=== PATIENT | female | born 1995 | race Caucasian/White ===

== ENCOUNTER 2024-10-15 20:39 | Inpatient (IN) | payer OTHER, SELFPAY ==
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
--- NOTE | 2024-10-15 | ECG_ITS ---
Test Reason : EVALUATE PROLONG QT Blood Pressure : */* mmHG Vent. Rate : 57 BPM Atrial Rate : 57 BPM P-R Int : 128 ms QRS Dur : 92 ms QT Int : 434 ms P-R-T Axes : 52 48 41 degrees QTcB Int : 422 ms Sinus bradycardia Incomplete right bundle branch block Cannot exclude old Septal infarct , age undetermined Abnormal ECG No previous ECGs available Referred By: Generic ED Physician Electronically Signed By: TORIE CHEN
[2024-10-15 20:44] VITALS: BP 112/63; BP 118/62; PULSE 61; PULSE 99; RESP 17; TEMP 37.1; O2SAT 97; BMI 44.4
[2024-10-15 21:10] LABS: Appearance Urine Clear; Glucose Urine UA Negative (Negative); PH 6.0 (5.0-9.0); Specific Gravity - Urine 1.015 (1.005-1.025); UMIC TRIGGER UACC YES; UPreg QC Valid YES
[2024-10-15 21:17] LABS: Cannabinoid Screen Urine Not Detected (Not Detect)
[2024-10-15 21:20] LABS: UACC Culture Trigger YES
[2024-10-15 21:33] LABS: Hematocrit 35.0 % (37.0-47.0); Hemoglobin 11.7 g/dl (12.0-16.0); Imm Gran Abs Auto 0.03 X10*3/uL (0.00-0.03); Imm Gran Pct Auto 0.5 % (0.0-0.4); Lymphocytes Absolute Auto 2.0 X10*3/uL (1.2-4.9); MANUAL DIFF FLAG NO; Mean Corpuscular HGB Conc 33.4 g/dl (31.0-35.0); Mean Corpuscular Hemoglobin 27.1 pg (27.0-33.0); Mean Corpuscular Volume 81.2 fL (80.0-98.0); NRBC Abs Auto 0.000 X10*3/uL (0.0-0.012); NRBC Pct Auto 0.0 /100WBC (0.0-0.2); Platelet Count 278 X10*3/uL (160-400); Red Blood Count 4.31 X10*6/uL (4.20-5.50); White Blood Count 6.4 X10*3/uL (4.8-10.8)
[2024-10-15 21:51] LABS: Alanine Aminotransferase 24 U/L (0-31); Albumin Level 4.4 g/dL (3.5-5.0); Alkaline Phosphatase 94 U/L (39-117); Anion Gap 16 (12-20); Aspartate Amino Transferase 24 U/L (5-31); Blood Urea Nitrogen 24 mg/dL (9-16); Calcium 8.8 mg/dL (8.4-10.2); Carbon Dioxide 22 mmol/L (22-29); Chloride 103 mmol/L (96-108); Creatinine Clr Calc Pharmacy 79.7; Estimated Glomerular Filt Rate 55; Potassium 3.7 mmol/L (3.3-5.1); Sodium 137 mmol/L (135-145); Total Protein 7.3 g/dL (6.5-8.0)
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
[2024-10-16 07:05] VITALS: BP 113/69; PULSE 58; RESP 20; TEMP 36.6; O2SAT 98
--- NOTE | 2024-10-16 08:05 | PHA.MEDREC ---
Pharmacy Consult ? Medication Reconciliation Pharmacy has completed the medication reconciliation. Reviewed med rec done by nursing.
[2024-10-16] MEDS: Ferrous Sulfate 324 MG TABLET.DR PO (09:42)
--- NOTE | 2024-10-16 09:43 | MHC.CARE ---
Pt will be an inpatient bedsearch.
--- NOTE | 2024-10-16 10:04 | PC.NURSE ---
assumed care of patient at 0700, patient is awake and alert, patient requesting to call [facility] no phone number is on file. patient is upset with staff. medicated per APR. plan for [facility]
--- NOTE | 2024-10-16 11:08 | PC.NURSE ---
care home staff came and dropped off patient belongings and medications. controlled in pharmacy
[2024-10-16 12:15] VITALS: BP 116/68; PULSE 82; RESP 16; TEMP 36.7; O2SAT 92
[2024-10-16 14:09] VITALS: BMI 48.2
--- NOTE | 2024-10-16 14:43 | PC.NURSE ---
Dori was admitted to M[facility] at 1200 from [facility] on [facility] for treatment of Mood disorder with SI. Prior to admission she was in a [facility] where they became concerned for her safety due to erratic behavior, delusional thought process and she endorsed SI with plan to cut herself. On arrival to the unit she is alert, fully oriented, labile and demanding.? Mood is reportedly depressed Affect is labile. She has low frustration tolerance.? She denies hallucinations of any kind.? Pt reports she is 3 months post with twins who are in dcf custody as are her 3 other children. This is a stressor for pt. She claims she needs to eat excessively due to being post but she also reports 25 lb weight gain in last 2 weeks.? Thought Process is therefore notably illogical.? She denies ideation, plan or intent to harm self or others on arrival to the unit. Sleep is reportedly good. Focus is impaired Pt has hx of? stimulant (crack) use disorder with last use 2 months ago Medical Issues include a left lower jaw/ tooth infection for which she is taking abx and tylenol She is on q 15 min safety checks.
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
[2024-10-16 20:00] VITALS: BP 119/63; PULSE 58; RESP 16; TEMP 36.4; O2SAT 99
[2024-10-17 03:12] VITALS: BP 131/83
--- NOTE | 2024-10-17 08:52 | HO.PSYCHPN ---
Subjective Subjective Date of Service: 10/17/24 Reason For Visit: si Subjective Notes: Conditional Voluntary Interim History: Active on unit. observed making multiple phone calls. Patient reports feeling good ; pt stated, I got accepted into the program I wanted in [place]. They have a bed for me tomorrow. I have my medications with me so I don't need you to send them . Patient reports she is looking forward to going to program; pt stated, I'm going to stay clean and try to get my babies back . denies SI/HI/VH/AH. Pt plans on following up with outpatient providers. Medication Compliance: Yes Side effects from medications: No Mental Status Exam Mental Status Exam Narrative: Pt is alert and oriented; behavior is cooperative and calm; dressed in casual attire; mood is described as good ; eye contact appropriate; Speech is normal rate, volume, slurred and not pressured; thought process is organized and goal directed; Thought content is on discharge; denies SI/HI/VH/AH. Diagnostics Vital Signs (24Hr): Vital Signs - 24 hr 10/16/24 12:15 10/16/24 20:00 10/17/24 03:12 Temperature 98.1 F 97.5 F Pulse Rate 82 58 Respiratory Rate 16 16 Blood Pressure 116/68 119/63 131/83 Pulse Oximetry 92 99 Oxygen Delivery Method Room Air Room Air BMI result Body Mass Index 48.2 Labs 10/15/24 21:28 10/15/24 21:28 Labs: Laboratory Results - last 48 hr 10/15/24 10/15/24 10/15/24 21:00 21:01 21:28 WBC 6.4 RBC 4.31 Hgb 11.7 L Hct 35.0 L MCV 81.2 MCH 27.1 MCHC 33.4 RDW 15.2 Plt Count 278 MPV 10.1 Immature Gran % (Auto) 0.5 H Neut % (Auto) 58.9 Lymph % (Auto) 32.0 [place] % (Auto) 6.7 Eos % (Auto) 1.3 Baso % (Auto) 0.6 Lymph # (Auto) 2.0 [place] # (Auto) 0.4 Eos # (Auto) 0.1 Baso # (Auto) 0.0 Abs Immat Gran (auto) 0.03 Absolute Neuts (auto) 3.8 Absolute Nucleated RBC 0.000 Nucleated RBC % (auto) 0.0 Sodium 137 Potassium 3.7 Chloride 103 Carbon Dioxide 22 Anion Gap 16 BUN 24 H Creatinine 1.15 Estim Creat Clear Calc 79.7 Estimated GFR 55 Random Glucose 157 H Calcium 8.8 Total Bilirubin 0.4 AST 24 ALT 24 Alkaline Phosphatase 94 Total Protein 7.3 Albumin 4.4 Urine Color Yellow Urine Appearance Clear Urine pH 6.0 Ur Specific [place] 1.015 Urine Protein Negative Urine Glucose (UA) Negative Urine Ketones Negative Urine Blood Negative Urine Nitrite Negative Ur Leukocyte Esterase Small (1+) H Urine RBC 0-2 Urine WBC 0-5 Ur Squamous Epith Cells 3-5 Urine Bacteria 1+ Hyaline Casts 0-2 Urine Test NEGATIVE Urine Opiates Screen Not Detected Ur Buprenorphine Scrn Not Detected Ur Oxycodone Screen Not Detected Urine Methadone Screen Not Detected Urine Fentanyl Screen Not Detected Ur Barbiturates Screen Not Detected Ur Phencyclidine Scrn Not Detected Ur Amphetamines Screen Not Detected U Benzodiazepines Scrn POSITIVE H Urine Cocaine Screen Not Detected U Marijuana (THC) Screen Not Detected Ethyl Alcohol < 10 Medications Medications Current Medications Acetaminophen (Acetaminophen 325 Mg Tablet) 650 mg PO Q6H PRN PRN Reason: Headache/Pain, Scale 1-10 Last Admin: 10/16/24 23:58 Dose: 650 mg Al Hydroxide/Mg Hydroxide (Magnesium Hydrox/Alum Hydrox 30 Ml Oral.Susp) 30 ml PO Q6H PRN PRN Reason: Heartburn/Nausea Azithromycin (Azithromycin 500 Mg Tablet) 500 mg PO DAILY [facility] Last Admin: 10/16/24 09:42 Dose: 500 mg Baclofen (Baclofen 10 Mg Tablet) 10 mg PO TID [facility] Last Admin: 10/16/24 22:06 Dose: 10 mg Benzocaine (Benzocaine 20 % Oral Gel 9 Gm Tube) 1 appl MUCOUS MEM TID PRN; Protocol PRN Reason: Mouth Sore Pain Clonidine HCl (Clonidine Hcl 0.1 Mg Tablet) 0.1 mg PO Q4H PRN; Protocol PRN Reason: Agitation Last Admin: 10/17/24 03:12 Dose: 0.1 mg Cyclobenzaprine HCl (Cyclobenzaprine Hcl 5 Mg Tablet) 5 mg PO TID PRN PRN Reason: Spasms Last Admin: 10/16/24 22:04 Dose: 5 mg Doxepin HCl (Doxepin Hcl 25 Mg Capsule) 25 mg PO BEDTIME [facility] Last Admin: 10/16/24 22:06 Dose: 25 mg Ferrous Sulfate (Ferrous Sulfate 324 Mg Tablet.Dr) 324 mg PO DAILY [facility] Last Admin: 10/16/24 09:42 Dose: 324 mg Fluoxetine HCl (Fluoxetine Hcl 20 Mg Capsule) 20 mg PO DAILY [facility] Last Admin: 10/16/24 09:42 Dose: 20 mg Hydroxyzine HCl (Hydroxyzine Hcl 25 Mg Tablet) 25 mg PO Q6H PRN PRN Reason: mild anxiety Ibuprofen (Ibuprofen 600 Mg Tablet) 600 mg PO Q8H PRN PRN Reason: Pain, Moderate(Pain Scale 4-6) Last Admin: 10/16/24 22:04 Dose: 600 mg Magnesium Hydroxide (Milk Of Magnesia 30 Ml Oral.Susp) 30 ml PO DAILY PRN PRN Reason: Constipation Melatonin (Melatonin 3 Mg Tablet) 6 mg PO BEDTIME PRN PRN Reason: Insomnia Last Admin: 10/16/24 22:03 Dose: 6 mg Nicotine (Nicotine 21 Mg Patch.Td24) 21 mg TRANSDERMA DAILY [facility] Nicotine Polacrilex (Nicotine Polacrilex 2 Mg Gum) 4 mg BUCCAL Q2H PRN PRN Reason: Nicotine Cravings Pt Own (Atomoxetine (18 Mg Capsule)) 36 mg PO DAILY [facility] Last Admin: 10/16/24 15:05 Dose: Not Given Olanzapine (Olanzapine 10 Mg Tablet) 10 mg PO Q4H PRN PRN Reason: Agitation Last Admin: 10/16/24 22:03 Dose: 10 mg Ondansetron HCl (Ondansetron Odt 4 Mg Tab.Rapdis) 4 mg TRANSLINGU Q6H PRN PRN Reason: Nausea and Vomiting Last Admin: 10/16/24 22:17 Dose: 4 mg Polyethylene Glycol (Polyethylene Glycol 3350 17 Gm Powd.Pack) 17 gm PO DAILY [facility] Last Admin: 10/16/24 09:44 Dose: Not Given Senna (Sennosides 8.6 Mg Tablet) 17.2 mg PO DAILY PRN PRN Reason: Constipation Topiramate (Topiramate 25 Mg Tablet) 50 mg PO BEDTIME [facility] Last Admin: 10/16/24 22:04 Dose: Not Given Trazodone HCl (Trazodone Hcl 50 Mg Tablet) 50 mg PO BEDTIME MRX1 PRN PRN Reason: Insomnia Last Admin: 10/17/24 03:12 Dose: 50 mg Allergies Allergies Allergy/AdvReac Type Severity Reaction Status Date / Time haloperidol (From Haldol) Allergy Unknown Verified 10/15/24 20:51 Penicillins Allergy Unknown Verified 10/15/24 20:51 Assessment & Plan Assessment & Plan (1) Bipolar disorder: Status: Acute Code(s): F31.9 - Bipolar disorder, unspecified (2) PTSD (post-traumatic stress disorder): Status: Acute Code(s): F43.10 - Post-traumatic stress disorder, unspecified (3) Cocaine use disorder: Status: Acute Code(s): F14.10 - Cocaine abuse, uncomplicated (4) ADHD: Status: Acute Code(s): F90.9 - Attention-deficit hyperactivity disorder, unspecified type Plan Patient 29-year-old female with history of bipolar disorder, PTSD, ADHD, alcohol use disorder and cocaine use disorder who presented to ER via ambulance from sober living home due to aggression, delusional statements and suicidal ideation with a plan to cut herself. Plan: CV 15 minute safety checks Continue home medications obtain collateral encourage groups referral to outpatient psychiatric providers referral to substance abuse program discharge planning 10/17: Active on unit. observed making multiple phone calls. Patient reports feeling good ; pt stated, I got accepted into the program I wanted in [place]. They have a bed for me tomorrow. I have my medications with me so I don't need you to send them . Patient reports she is looking forward to going to program; pt stated, I'm going to stay clean and try to get my babies back . denies SI/HI/VH/AH. Pt plans on following up with outpatient providers. Patient educated on: diagnosis and medication risk/benefits Reason for continued inpatient stay Substantial Risk for: stable for discharge Time Spent With Patient Time: Total time managing care of this patient today _20___ minutes.
[2024-10-17] MEDS: ATOMOXETINE 18 MG 36 EACH PO (09:05)
[2024-10-17] MEDS: Ferrous Sulfate 324 MG TABLET.DR PO (09:06)
[2024-10-17 20:00] VITALS: BP 128/72; PULSE 65; RESP 16; TEMP 36.6; O2SAT 99
[2024-10-17 21:29] VITALS: BP 128/75
[2024-10-18 07:35] VITALS: BP 123/76; PULSE 70; RESP 18; TEMP 36.8; O2SAT 98
[2024-10-18] MEDS: Ferrous Sulfate 324 MG TABLET.DR PO (08:07)
[2024-10-18] MEDS: ATOMOXETINE 18 MG 36 EACH PO (08:10)
[2024-10-18] MEDS: Naloxone HCl Nasal TAKE HOME 4 MG SPRAY 8 MG NOSTRILALT (08:20)
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
== END 2024-10-18 08:55 | disposition home or self-care (01) | DRG 885 ==
LOC: HO.ED 23:24 → HO.PADLT16 10-16 11:00
PROVIDERS: Admitting Provider Registered Nurse; Emergency Provider Emergency Medicine; Responsible Provider Registered Nurse; Visit Provider Psychiatry & Neurology Psychiatry
DX: F31.9 Bipolar disorder, unspecified (principal); R45.851 Suicidal ideations; F43.10 Post-traumatic stress disorder, unspecified; F90.9 Attention-deficit hyperactivity disorder, unspecified type; Z63.4 Disappearance and death of family member; F10.90 Alcohol use, unspecified, uncomplicated; F14.10 Cocaine abuse, uncomplicated; Z79.899 Other long term (current) drug therapy
CPT/HCPCS: 36415; 80053; 80307; 81001; 81025; 85025; 87086; 93005; 99285; S9485

== ENCOUNTER → 2024-10-15 21:09 | Outpatient (BNV) | payer OTHER, SELFPAY | PROVIDERS: Admitting Provider Registered Nurse; Emergency Provider Emergency Medicine; Responsible Provider Registered Nurse; Visit Provider Internal Medicine | DX: R00.1 Bradycardia, unspecified (principal); I45.10 Unspecified right bundle-branch block | CPT/HCPCS: 93010 ==

== ENCOUNTER → 2024-10-16 10:45 | Outpatient (BNV) | payer OTHER, SELFPAY | PROVIDERS: Admitting Provider Registered Nurse; Emergency Provider Emergency Medicine; Responsible Provider Registered Nurse; Visit Provider Registered Nurse | DX: F31.9 Bipolar disorder, unspecified (principal); F43.10 Post-traumatic stress disorder, unspecified; F14.10 Cocaine abuse, uncomplicated; F90.9 Attention-deficit hyperactivity disorder, unspecified type | CPT/HCPCS: 90792 ==